=== PATIENT | male | born 1965 | race Caucasian/White ===

== ENCOUNTER 2018-03-19 10:09 | Emergency (ER) | payer OTHER ==
[~2018-03-19] VITALS: Ht 170.2 cm; Wt 91.2 kg
[2018-03-19] MEDS ORDERED: MORPHINE SULFATE 2 MG/ML SYR IV STA (10:33)
[2018-03-19] MEDS ORDERED: ONDANSETRON HCL INJ 2 MG/ML VIAL IV STA (10:33)
[2018-03-19] MEDS ORDERED: FAMOTIDINE 20 MG/2 ML VIAL IV STA (10:33)
[2018-03-19] MEDS ORDERED: KETOROLAC TROMETHAMINE 30 MG/ML VIAL IV STA (11:38)
--- NOTE | 2018-03-19 13:30 | Diagnostic Imaging Report ---
RIGHT UPPER QUADRANT ULTRASOUND TECHNIQUE: Ultrasound evaluation of the right upper quadrant abdomen. Color Doppler evaluation was utilized to supplement the evaluation. HISTORY: Abdominal pain COMPARISON: None available DISCUSSION: LIVER: No focal lesion identified. Diffusely increased echogenicity. The liver measures 16 cm in length in the right mid-clavicular line. BILIARY: The gallbladder has a normal appearance, without evidence for gallstones, sonographic Simmons's sign, gallbladder wall thickening or pericholecystic fluid. Common bile duct measures 0.5 cm. PANCREAS: Incompletely visualized due to overlying bowel gas. PERITONEUM: No free fluid. RIGHT KIDNEY: 12 cm in length. No hydronephrosis, solid mass, or cystic lesion identified. MIDLINE VASCULATURE: Obscured by the overlying bowel gas. IMPRESSION: 1. Findings suggestive of hepatic steatosis. 2. No cholelithiasis or sonographic evidence of acute cholecystitis. Signed by: Dr. Magnus Summers D.O., M.M.M. on 03/19/2018 1:26 PM
[2018-03-19 13:47] VITALS: BP 136/88
== END 2018-03-19 13:55 | disposition home or self-care (01) ==
LOC: FSED 10:09
DX: R10.11 Right upper quadrant pain (principal); R10.12 Left upper quadrant pain; R11.0 Nausea; K29.00 Acute gastritis without bleeding; K76.0 Fatty (change of) liver, not elsewhere classified; K21.9 Gastro-esophageal reflux disease without esophagitis
CPT/HCPCS: 76705; 80053; 80076; 84484; 85025; 99284; J1885; J2270; J2405

== ENCOUNTER 2018-08-17 03:39 | Emergency (ER) | payer OTHER ==
[~2018-08-17] VITALS: Ht 170.2 cm; Wt 90.3 kg
--- OUTSIDE RECORDS SUMMARY | 2018-08-17 03:42 | XMS REPORT | Continuity of Care Document ---
Author Author [facility] Interface Address Unknown Phone Unavailable Problems Problem Status Onset Date Classification Date Reported Comments Source Acute upper respiratory infection 06/29/2018 Diagnosis 06/29/2018 [facility] Immunization due 06/29/2018 Diagnosis 06/29/2018 [facility] Cough 06/29/2018 Diagnosis 06/29/2018 [facility] Body mass index 30+ - obesity 06/29/2018 Diagnosis 06/29/2018 [facility] Elevated blood-pressure reading without diagnosis of hypertension 06/29/2018 Diagnosis 06/29/2018 [facility] Sore throat symptom 06/29/2018 Diagnosis 06/29/2018 [facility] Depressive Disorder 06/29/2018 Problem 06/29/2018 [facility] Gastroesophageal Reflux Disease 06/29/2018 Problem 06/29/2018 [facility] Allergic rhinitis Active Problem 06/25/2014 [facility] Depression Active Problem 06/25/2014 [facility] Neck pain Active Diagnosis 12/11/2013 [facility] Acute dermatitis Active Diagnosis 12/11/2013 [facility] Medications Medication Details Route Status Patient Instructions Ordering Provider Order Date Source Lidex apply to affected area Externally Active 0.05 % Externally two to three times a day Andreas 12/05/2013 [facility] Zoloft 1/2-1 tablet Orally Active 50 MG Orally Once a day(must see doctor before next refill) [facility] benzonatate 200 MG Oral Capsule benzonatate 200 mg capsule Take 1 capsule 3 times a day by oral route for 14 days. Active [facility] Lidocaine Hydrochloride 20 MG/ML Mucous Membrane Topical Solution Lidocaine Viscous 2 % mucosal solution Gargle 15 mL every 4 hours as needed for sore throat Active [facility] Omeprazole 40 MG Delayed Release Oral Capsule omeprazole 40 mg capsule,delayed release Active [facility] Sertraline 50 MG Oral Tablet sertraline 50 mg tablet Active [facility] Allergies, Adverse Reactions, Alerts Substance Category Reaction Severity Reaction type Status Date Reported Comments Source N.K.D.A. Adverse Reaction Info Not Available Adverse Reaction Active 12/05/2013 [facility] Immunizations Immunization Date Given Site Status Last Updated Comments Source influenza, injectable, quadrivalent 02/13/2018 completed [facility] Results Order Name Results Value Reference Range Date Interpretation Comments Source RESULT negative 06/29/2018 [facility] SWAB LOCATION Left and Right tonsillar pillars 06/29/2018 [facility] Vital Signs Vital Sign Value Date Comments Source Diastolic (mm Hg) 74 06/29/2018 [facility] Height 67 06/29/2018 [facility] Systolic (mm Hg) 128 06/29/2018 [facility] Weight 195 06/29/2018 [facility] Weight 188 12/05/2013 [facility] Height 67 12/05/2013 [facility] Temperature Oral (F) 98.6 F 12/05/2013 [facility] Heart Rate 86 12/05/2013 [facility] Diastolic (mm Hg) 90 12/05/2013 [facility] Systolic (mm Hg) 130 12/05/2013 [facility] Encounters Location Location Details Encounter Type Encounter Number Reason For Visit Attending Provider ADM Date DC Date Status Source [facility] throat pain [id number] 12/05/2013 12/05/2013 [facility] throat pain [id number] 12/05/2013 12/05/2013 [facility] Refill [id number] 06/23/2014 06/23/2014 [facility] Departed Emergency Room [id number] RACHEL STRONG MD 03/19/2018 03/19/[address] [facility] [place] - [facility] JOSEPH KwokP-C: [address] [place] [address], Ph. [id number] Mary Kay Mann 06/29/2018 [facility] Procedures Procedure Code Date Perfomer Comments Source
--- OUTSIDE RECORDS SUMMARY | 2018-08-17 03:42 | XMS REPORT | Encounter Summary ---
Author Organization Unknown Address [address] [place] [address] Phone [phone] Reason for Visit Medical Complaint Instructions 1. Acute upper respiratory infection upper respiratory infection (cold): care instructions 2. Sore throat symptom sore throat: care instructions rapid strep group A, throat Lidocaine Viscous 2 % mucosal solution 3. Cough cough: care instructions rapid flu (A+B) benzonatate 200 mg capsule 4. Elevated blood-pressure reading without diagnosis of hypertension elevated blood pressure: care instructions 5. Body mass index 30+ - obesity A healthy lifestyle: care instructions 6. Immunization due Discussion Note Pt is aaox3 and in NAD; verbalizes understanding of all instructions and has no further questions at this time Plan of Care Patient Instructions Try warm salt water gargles, throat lozenges, soups or tea with honey and/or lemon juice to soothe the throat. Take ibuprofen every 6 hours for fever, pain and/or swelling of throat. Change out your toothbrush tomorrow or when you start to feel better. Return to clinic if symptoms do not resolve in 1 week. Reminders Provider Appointments None recorded. Lab Rapid Strep Group a, Throat 06/29/2018 [facility] Rapid Flu (A+B) 06/29/2018 [facility] Referral None recorded. Procedures None recorded. Surgeries None recorded. Imaging None recorded. Medications Name Start Date benzonatate 200 mg capsule Take 1 capsule 3 times a day by oral route for 14 days. Lidocaine Viscous 2 % mucosal solution Gargle 15 mL every 4 hours as needed for sore throat omeprazole 40 mg capsule,delayed release sertraline 50 mg tablet Medications Administered None recorded. Vitals Height Weight BMI Blood Pressure 5 ft 7 in 195 lbs 30.5 kg/m2 128/74 mm[Hg] Lab Results Date Name Specimen Result Interpretation Description Value Range Status Address 06/29/2018 Rapid Strep Group a, Throat Result negative [facility]: [address] [place] [address] Swab Location Left and Right tonsillar pillars [facility]: [address] [place] [address] Allergies Code Code System Name Reaction Severity Status Onset NKDA Problems Name Status Onset Date Source Depressive Disorder Active 06/29/2018 Gastroesophageal Reflux Disease Active 06/29/2018 Procedures None recorded. Vaccine List Vaccine Type influenza, injectable, quadrivalent 02/13/2018 Social History Smoking Status Never Smoker Past Encounters 06/29/2018 Acute Upper Respiratory Infection; Sore Throat Symptom; Cough; Elevated Blood- pressure Reading without Diagnosis of Hypertension; Body Mass Index 30+ - Obesity; Immunization Due Mary Kay Mann, [employer]: [address] [place] [address], Ph. History of Present Illness [id number] Reported By: Patient HPI: Location: head/sinuses, throat. Quality: sore throat, nasal/sinus congestion, dry cough. Duration: 2days. Context: no sick contacts, no foreign travel, non- smoker. Associated Symptoms: no sputum production, no shortness of breath, no wheezing, no change in number of pillows needed to sleep at night, no sweats, no significant weight gain, no significant weight loss, no morning cough, no vomiting, no diarrhea, no rash, no nausea, no fever, no muscle aches, no headache, fatigue, sore throat Review of Systems:ROS as noted in the HPI Review of Systems Basic Reported By: Patient Physical Exam Adult Basic, Adult Male Complete Reported By: Patient Constitutional: General Appearance: healthy-appearing, well-nourished, well-developed. Level of Distress: NAD. Ambulation: ambulating normally Psychiatric: Mental Status: active and alert. Orientation: to time, to place, to person Eyes: Lids and Conjunctivae: non-injected, no discharge, no pallor Tmd-Mcfz-Rymwk-Throat: Ears: no lesions on external ear, no outer ear tenderness, EACs clear, TMs clear. Hearing: no hearing loss. Nose: no lesions on external nose, nares patent, no septal deviation, nasal passages clear, no sinus tenderness, nasal discharge. Lips, Teeth, and Gums: no mouth or lip ulcers, no bleeding gums, normal dentition. Oropharynx: moist mucous membranes, no exudates, erythema, tonsils enlarged 1+ Neck: Neck: supple, FROM. Lymph Nodes: no cervical LAD Lungs: Respiratory effort: no dyspnea, no tachypnea, no use of accessory muscles, no intercostal retractions. Auscultation: breath sounds normal Cardiovascular: Heart Auscultation: RRR, no murmurs
--- OUTSIDE RECORDS SUMMARY | 2018-08-17 03:42 | XMS REPORT ---
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 Allergies, Adverse Reactions, Alerts This patient has no known allergies or adverse reactions. Medications This patient has no known medications. Results Test Description Test Time Test Comments Text Results Atomic Results Result Comments GALL BLADDER-HOPD 2018-03-19 13:23:00 [place] [id number] Patient Name: SONIDO TIWARI MR #: [id number] : 1965 Age/Sex: 53/M Req #: [id number] Adm Physician: Ordered by: RACHEL STRONG MD Report #: [id number] Location: [facility] Room/Bed: Procedure: [id number] HOPD/US GALL BLADDER-HOPD Exam Date: 03/19/18 Exam Time: 1215 REPORT STATUS: Signed RIGHT UPPER QUADRANT ULTRASOUND TECHNIQUE: Ultrasound evaluation of the right upper quadrant abdomen. Color Doppler evaluation was utilized to supplement the evaluation. HISTORY: Abdominal pain COMPARISON: None available DISCUSSION: LIVER: No focal lesion identified. Diffusely increased echogenicity. The liver measures 16 cm in length in the right mid-clavicular line. BILIARY: The gallbladder has a normal appearance, without evidence for gallstones, sonographic Simmons's sign, gallbladder wall thickening or pericholecystic fluid. Common bile duct measures 0.5 cm. PANCREAS: Incompletely visualized due to overlying bowel gas. PERITONEUM: No free fluid. RIGHT KIDNEY: 12 cm in length. No hydronephrosis, solid mass, or cystic lesion identified. MIDLINE VASCULA TURE: Obscured by the overlying bowel gas. IMPRESSION: 1. Findings suggestive of hepatic steatosis. 2. No cholelithiasis or sonographic evidence of acute cholecystitis. Signed by: Dr. Tiny Summers D.O., M.M.M. on 03/19/2018 1:26 PM Dictated By: TINY SUMMERS DO 1326 Transcribed By: AIRAM on 03/19/18 1326 COPY TO: RACHEL STRONG MD
[2018-08-17] MEDS ORDERED: DONNATAL/LIDOCAINE/MAALOX 30 ML SUSP PO STA (03:59)
[2018-08-17 05:48] VITALS: BP 165/94
== END 2018-08-17 05:57 | disposition home or self-care (01) ==
LOC: FSED 03:39
DX: R10.13 Epigastric pain (principal); K21.9 Gastro-esophageal reflux disease without esophagitis; K52.9 Noninfective gastroenteritis and colitis, unspecified; E87.6 Hypokalemia
CPT/HCPCS: 80048; 80076; 81003; 82553; 84484; 85025; 93005; 99283